=== PATIENT | female | born 1980 | race African-American/Black ===

== ENCOUNTER 2021-11-16 15:23 | Emergency (ER) | payer MEDICAID ==
[~2021-11-16] VITALS: Ht 177.8 cm; Wt 69.0 kg
[2021-11-16 20:24] LABS: BASOPHILS % 0.8 % (0.0-2.0); EOSINOPHILS % 0.9 % (0.0-5.0); HEMOGLOBIN. 12.9 g/dL (12.0-16.0); LYMPHOCYTES % 55.2 % (20.0-50.0); MEAN CORPUSCULAR HEMOGLOBIN 29.5 pg (28.0-32.0); MEAN CORPUSCULAR VOLUME 93.7 fL (81.0-99.0); MONOCYTES % 7.7 % (2.0-8.0); NEUTROPHILS % 35.4 % (40.0-76.0); PLATELET 126 x1000/uL (130-400); RED BLOOD CELL COUNT 4.38 mill/uL (4.2-5.4); RED CELL DISTRIBUTION WIDTH 13.6 % (11.6-14.6)
[2021-11-16 20:29] LABS: CHLORIDE 108 mEq/L (98-107)
[2021-11-16 20:55] LABS: HCG SCREEN NEGATIVE
[2021-11-17 00:30] VITALS: BP 128/80
[2021-11-17 00:40] LABS: CLARITY URINE CLEAR (CLEAR); COLOR URINE YELLOW (YELLOW); KETONES URINE 1+ (NEGATIVE); LEUKOCYTE ESTERASE URINE 1+ (NEGATIVE); NITRITE URINE NEGATIVE (NEGATIVE); OCCULT BLOOD URINE NEGATIVE (NEGATIVE); PROTEIN URINE TRACE (NEGATIVE); SPECIFIC GRAVITY URINE 1.029 (1.005-1.030)
[2021-11-17 01:38] LABS: D-DIMER 0.2 mg/L FEU (<0.50); PARTIAL THROMBOPLASTIN TIME 28.9 sec (23.4-31.0); PROTHROMBIN TIME 10.4 sec (9.6-11.0)
[2021-11-17] MEDS ORDERED: NITR-87 MT (02:15)
== END 2021-11-17 03:27 | disposition home or self-care (01) ==
LOC: ER 15:23
DX: R07.2 Precordial pain (principal); N39.0 Urinary tract infection, site not specified
CPT/HCPCS: 36415; 71045; 80053; 81003; 83880; 84484; 84703; 85025; 85379; 93005; 99285